=== PATIENT | female | born 1945 ===

== ENCOUNTER 2019-05-12 14:44 | Outpatient (CLI) | payer MEDICARE, BC, SELFPAY ==
--- NOTE | 2019-05-12 | US_ITS ---
WS: [id number] THYROID ULTRASOUND HISTORY: GOITER COMPARISON: 06/25/2017 Right lobe: 5.8 cm x 3.7 cm x 2.5 cm. Volume: 27.8 cm3. Mildly enlarged gland. There is a dominant nodule in the central gland. This nodule involves nearly t he entire lobe measuring 5.1 x 2.4 cm. Mixed echogenicity. There are central cystic areas and periphe ral increased vascularity. No progression in size. Left lobe: 4.8 cm x 1.6 cm x 1.4 cm. Volume: 5.6 cm3. Heterogeneous gland with tiny punctate calcifications. There is a hypoechoic nodule which is ill-defi paula towards the lower pole measures 1.6 x 1.3 cm. Nodule is less cystic than on the prior study and m ore solid in appearance. Additional smaller scattered hypoechoic nodules. Isthmus: 4 mm. US/US thyroid [id number] IMPRESSION: 1. Bilateral thyroid masses. There are masses within each thyroid lobe that ar e concerning for malignancy based on their imaging characteristics. As there ar e numerous masses identified consider follow-up with ENT. Malignancy should be considered. 2. The most concerning masses are the largest nodule replacing the central RIG HT thyroid and the hypoechoic nodule lower pole LEFT thyroid.
== END 2019-05-12 14:45 | disposition home or self-care (01) ==
LOC: RADOUTREAD 05-13 14:44
PROVIDERS: Family Provider Nurse Practitioner Family; PCP Nurse Practitioner Family; Visit Provider Family Medicine
DX: Z76.89 Persons encountering health services in other specified circumstances (principal)

== ENCOUNTER → 2019-06-01 09:13 | Outpatient (BNVA) | payer MEDICARE, BC, SELFPAY | PROVIDERS: Family Provider Nurse Practitioner Family; PCP Family Medicine; Visit Provider Otolaryngology | DX: E04.1 Nontoxic single thyroid nodule (principal) | CPT/HCPCS: 99203; 99214 ==

== ENCOUNTER → 2022-12-28 11:33 | Outpatient (BNVA) | payer MEDICARE, BC, SELFPAY | PROVIDERS: PCP Family Medicine; Visit Provider Nurse Practitioner Family | DX: N39.0 Urinary tract infection, site not specified (principal) | CPT/HCPCS: 81000; 87077; 87086; 87184 ==

== ENCOUNTER 2023-02-14 12:32 | Outpatient (CLI) | payer MEDICARE, BC, SELFPAY ==
--- NOTE | 2023-02-14 12:38 | US_ITS ---
WS: [id number] THYROID ULTRASOUND HISTORY: DOMINANT THYROID NODULE COMPARISON: 06/14/2020, 05/12/2019 and 06/25/2017 Right lobe: 3.7 cm x 2.6 cm x 5.9 cm (w x ap x l). Volume: 29.3 cm3. Enlarged gland with a large dominant nodule with cystic components. This nodules are replacing a larg e portion of the gland. Dominant RIGHT thyroid nodule measures 4.0 x 2.5 x 5.4 cm. A few cystic compo nents centrally. This is nearly isoechoic to the adjacent normal thyroid tissue. Mild increased vascu larity. No extrathyroidal extension. Left lobe: 1.4 cm x 1.2 cm x 4.4 cm (w x ap x l). Volume: 3.9 cm3. Heterogeneous gland. Scattered nodules throughout the gland. The largest in the mid gland measures 1. 0 x 0.6 x 1.1 cm. No increased vascularity. Similar in appearance to the prior study. Isthmus: 0.4 cm. Isthmus nodule measures 1.0 x 1.0 x 0.7 cm. IMPRESSION: 1. TI-RADS 3; large dominant mixed cystic and solid nodule RIGHT thyroid. Mildly suspicious. Due to i ts size ultrasound-guided FNA can be performed for further characterization. No increase in size or c hange. 2. Scattered nodules LEFT thyroid. Largest with a maximal diameter of 1.1 cm. Continued yearly ultras ound follow-up.
== END 2023-02-14 12:33 | disposition home or self-care (01) ==
LOC: RAD 12:32
PROVIDERS: PCP Family Medicine; Visit Provider Family Medicine
DX: E04.1 Nontoxic single thyroid nodule (principal)
CPT/HCPCS: 76536

== ENCOUNTER → 2023-06-04 11:26 | Outpatient (BNVA) | payer MEDICARE, BC, SELFPAY | PROVIDERS: PCP Family Medicine; Visit Provider Nurse Practitioner Family | DX: D64.9 Anemia, unspecified (principal) | CPT/HCPCS: 80053; 85025 ==

== ENCOUNTER 2024-08-11 12:09 | Outpatient (CLI) | payer MEDICARE, BC, SELFPAY ==
--- NOTE | 2024-08-11 12:32 | XR_ITS ---
WS: [id number] XR hip BI 2V wo/w pel [id number] REASON FOR EXAM: ILIAC CREST BONE PAIN FINDINGS: RIGHT HIP: Total right hip arthroplasty. Moderate lucency around the acetabular component of the total hip replacement, unchanged compared to 06/25/2017. LEFT HIP: No fracture or focal bone lesion. Moderate narrowing of the posterior inferior joint space and mild narrowing of the anterior superior joint space with moderate subchondral sclerosis of the acetabulum. Moderate osteophytosis of the femoral head. XR/XR hip BI 2V wo/w pel [id number] IMPRESSION: Stable total right hip arthroplasty. Moderate to significant osteoarthritis of the left hip.
== END 2024-08-11 12:10 | disposition home or self-care (01) ==
LOC: RAD 12:13
PROVIDERS: PCP Family Medicine; Visit Provider Family Medicine
DX: M89.8X8 Other specified disorders of bone, other site (principal); Z98.890 Other specified postprocedural states; M16.12 Unilateral primary osteoarthritis, left hip; R93.89 Abnormal findings on diagnostic imaging of other specified body structures; M25.752 Osteophyte, left hip
CPT/HCPCS: 73521

== ENCOUNTER → 2024-09-14 11:00 | Outpatient (BNVA) | payer MEDICARE, BC, SELFPAY | PROVIDERS: PCP Family Medicine; Visit Provider Orthopaedic Surgery | DX: M16.12 Unilateral primary osteoarthritis, left hip (principal) | CPT/HCPCS: 99204 ==